=== PATIENT | male | born 1990 | race Hispanic/Latino ===

== ENCOUNTER 2022-12-11 08:07 | Outpatient (RCR) | payer OTHER, SELFPAY ==
--- NOTE | 2022-12-11 13:51 | OT.OP.EVAL ---
Visit Care Team Role Provider Type Mono Dotson PA-C Attending Provider Non-Staff Primary Care Provider Referring Provider Specialty: Medical Address: [address] [place] [address], [id number] Phone: Email: Occupational Therapy Initial Evaluation OT Outpatient Adult Evaluation Start: 12/11/22 13:07 Freq: Status: Active Protocol: Document 12/11/22 13:08 AMS (Rec: 12/11/22 13:14 [facility] [id number]) General Information - Adult Visit Start Time 08:30 Visit Stop Time 09:00 Total Visit Minutes 30 Treatment Setting Outpatient Care Note Type Initial Evaluation Identification Confirmed Yes Identification Confirmed By Self Assessment/Plan Treatment Assessment Carlos is a 32 year-old right hand dominant male referred to outpatient OT by PCP secondary to L wrist pain. Medical history is significant for headaches and back pain; taking back pain medication. Indication of 4 out of 10 on the Pain Assessment Grid relative to dorsal L radial wrist, volar L ulnar wrist, and dorsal radial R wrist. QuickDASH UE Outcome Measure Score = 18.18; [employer] UE Outcome Measure Work Module Score = 6.25; [employer] Sports /Performing Arts Module Score = 31.25 (Crossfit and weight lifting). Denial of use of brace. Reported recent change in work status (promotion); thus, wrist symptoms are not being aggravated at work. 75 degrees active L wrist flex vs 75 degrees active R wrist flex; 75 degrees available active L wrist ext vs 55 degrees active L wrist ext without dorsal wrist tightness vs 65 degrees active R wrist ext; 40 degrees active L wrist UD vs 30 degrees active R wrist UD; 20 degrees active L wrist RD vs 20 degrees active R wrist RD. 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 128# of force L court collections officer dynamometer II elbow ext vs 113# of force R court collections officer dynamometer II elbow ext. MMT wrist strength findings: 5/5 MMT L wrist ext/flex/RD/ UD; 5/5 MMT R wrist ext/flex/ RD/UD. 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 Patient Recommendations Discharge from Occupational Therapy
== END 2022-12-14 08:41 | disposition home or self-care (01) ==
LOC: OT 08:07
PROVIDERS: PCP Physician Assistant; Referring Provider Physician Assistant; Visit Provider Physician Assistant
DX: M25.532 Pain in left wrist (principal)
CPT/HCPCS: 97165